=== PATIENT | male | born 1960 | race Caucasian/White ===

== ENCOUNTER → 2017-02-25 | Outpatient (CLI) | payer MEDICARE ==
[~2017-02-25] MED LIST: AMLO10 PO; AMOX500 PO; ANTIDIARRHEAL; B12 PO; CITA20 PO; CLON.1 PO; CYAN500 PO; Cerovite Advan1 EACH PO; FOLI1 PO; FURO20 PO; Iron Supplemen325 MG PO; LISI20 PO; LISI5 PO; Lisinopril2.5 MG; MAGNESIUM GLUCONATE PO; METO25ER PO; METO50 PO; MULVITMIND PO; Magnesium500 M1 PO; NYST100P TOP; PANCREAZE PO; POTA10T PO; SODCHL1 PO; THIA100 PO; TRAZ50 PO; VITAMIN B-1250 MG PO; [UNRECOGNIZED DRUG - OTHER] TOP
[2017-02-25 15:28] LABS: Influenza A Negative (NEGATIVE); Influenza B Negative (NEGATIVE)
== END | disposition home or self-care (01) ==
LOC: LAB 14:45
DX: R09.89 Other specified symptoms and signs involving the circulatory and respiratory systems (principal); R50.9 Fever, unspecified; R05 Cough
CPT/HCPCS: 87804

== ENCOUNTER 2018-04-07 07:36 | Inpatient (IN) | payer MEDICARE ==
[~2018-04-07] VITALS: Ht 185.4 cm; Wt 56.3 kg
[~2018-04-07 07:36] MED LIST changes: -AMLO10 PO; +AMLO5 PO; -CITA20 PO; +Citalopram HBr10 MG PO
[2018-04-07 08:07] LABS: BASOPHILS ABSOLUTE AUTO 0.07 K/mm3 (0.00-0.23); BASOPHILS PERCENT AUTO 0 % (0-2); EOSINOPHILS ABSOLUTE AUTO 0.01 K/mm3 (0.00-0.68); EOSINOPHILS PERCENT AUTO 0 % (0-6); Hematocrit 36.5 % (37.0-53.0); Hemoglobin 13.3 g/dL (13.5-17.5); IMMATURE GRAN ABSOLUTE AUTO 0.14 K/mm3 (0.00-0.10); IMMATURE GRAN PERCENT AUTO 1 % (0-1); LYMPHOCYTES PERCENT AUTO 5 % (21-46); MONOCYTES ABSOLUTE AUTO 1.28 K/mm3 (0.16-1.47); MONOCYTES PERCENT AUTO 6 % (4-13); Mean Corpuscular HGB 32.1 pg (26.0-34.0); Mean Corpuscular HGB Conc 36.4 g/dL (31.5-36.5); Mean Corpuscular Volume 88 fL (80-100); Mean Platelet Volume 8.4 fL (9.1-12.4); NEUTROPHILS ABSOLUTE AUTO 18.27 K/mm3 (1.96-9.15); NEUTROPHILS PERCENT AUTO 88 % (41-73); Platelet Count 317 K/mm3 (150-400); RDW Coefficient Variation 12.3 % (11.7-14.2); RDW Standard Deviation 40.1 fL (35.1-46.3); Red Blood Cell Count 4.14 M/mm3 (4.30-5.90); White Blood Cell Count 20.77 K/mm3 (4.00-11.30)
[2018-04-07 08:24] LABS: Ethanol (Alcohol), Blood, Med <3 mg/dL
[2018-04-07 08:31] LABS: Alanine Aminotransfer (ALT/SGP 50 U/L (12-78); Albumin, Blood 3.8 g/dL (3.4-5.0); Albumin/Globulin Ratio 0.7 (0.8-1.8); Alk Phos 124 U/L (50-136); Anion Gap 15 mmol/L (6-16); Aspartate Aminotrans (AST/SGOT 76 U/L (12-37); Bilirubin, Total 1.1 mg/dL (0.1-1.0); Blood Urea Nitrogen 6 mg/dL (8-24); Bun/Creatinine Ratio 6.9 (12.0-20.0); CO2, Blood 27 mmol/L (21-32); Calcium, Blood 8.8 mg/dL (8.5-10.1); Chloride, Blood 70 mmol/L (98-108); Creatinine, Blood 0.87 mg/dL (0.60-1.20); Globulin, Blood 5.2 g/dL (2.2-4.0); Glomerular Filtration Rate >60 (60-); Glucose, Blood 110 mg/dL (70-99); Potassium, Blood 4.6 mmol/L (3.5-5.5); Sodium, Blood 112 mmol/L (136-145)
[2018-04-07] MEDS ORDERED: ZENPEP DR 20,01 EACH PO (10:11)
[2018-04-07] MEDS ORDERED: METO25 PO (10:12)
[2018-04-07] MEDS ORDERED: FURO20 PO (10:14)
[2018-04-07 10:45] LABS: Source, Urine Voided
[2018-04-07 10:59] LABS: Bilirubin, Urine Neg (Neg); Blood, Urine 2+ (Neg); Glucose Qualitative, Urine Neg (Neg); Ketones, Urine 1+ (Neg); Leukocyte Esterase, Urine Neg (Neg); Nitrite, Urine Neg (Neg); Protein, Urine 1+ (Neg); Urobilinogen, Urine NORM (Normal)
[2018-04-07 11:08] LABS: Appearance, Urine Clear (Clear); Color, Urine Yellow (P-Yellow)
[2018-04-07 11:13] LABS: Red Blood Cells, Urine 0-2 /hpf (0-2); White Blood Cells, Urine Not Seen /hpf (0-5)
[2018-04-07 11:14] LABS: Bacteria Not Seen /hpf; Squamous Epithelial Cells Rare /hpf (Few)
[2018-04-07 12:07] LABS: Creatine Kinase MB 11.9 ng/mL (0.0-3.6); Creatine Kinase MB Index 2.3 (0.0-4.0)
[2018-04-07 15:13] LABS: Anion Gap 11 mmol/L (6-16); Blood Urea Nitrogen 5 mg/dL (8-24); Bun/Creatinine Ratio 7.1 (12.0-20.0); CO2, Blood 29 mmol/L (21-32); Calcium, Blood 8.1 mg/dL (8.5-10.1); Chloride, Blood 76 mmol/L (98-108); Creatinine, Blood 0.71 mg/dL (0.60-1.20); Glomerular Filtration Rate >60 (60-); Glucose, Blood 83 mg/dL (70-99); Potassium, Blood 3.8 mmol/L (3.5-5.5); Sodium, Blood 116 mmol/L (136-145)
[2018-04-07] MEDS ORDERED: TRAZ50 PO (16:11)
[2018-04-07] MEDS ORDERED: FOLI1 PO (16:12)
[2018-04-07] MEDS ORDERED: CYAN500 PO (16:13)
[2018-04-07] MEDS ORDERED: Cerovite Advan1 EACH PO (16:15)
[2018-04-07] MEDS ORDERED: D3-20002000 UNIT PO (16:15)
--- NOTE | 2018-04-07 17:50 | NUR ---
ASSUMED CARE OF PT AT APPROXIMATELY 1240. PT ALERT AND ORIENTED ANSWERING QUESTIONS APPROPRIATELY. VS STABLE. SODIUM HAS INCREASED FROM 112 TO 116. LS EXP WHEEZES THROUGHOUT. O2 SATS >92% ON RA. PT DENIES ANY PAIN AT THIS TIME. PT STATES HE DRINKS 2-3 BEERS DAILY, BUT SHOWS NO SIGNS OR SYMPTOMS OF WITHDRAWAL AT THIS TIME. NO CHANGES SINCE INITIAL ASSESSMENT. WILL CONTINUE TO MONITOR AND REPORT TO ONCOMING RN. CALL LIGHT IN REACH.
--- NOTE | 2018-04-08 03:04 | NUR ---
ASSUMED CARE OF PATIENT AT APPROXIMATELY 1905 FROM CONCHIS Simmons RN. PATIENT ALERT AND ORIENTED X2. PATIENT HAS NOT AMBULATED SINCE SHIFT CHANGE. PATIENT DENIES PAIN, NUMBNESS, TINGLING, DIZZINESS AND NAUSEA. PATIENT WAS EATING DINNER AT SHIFT CHANGE AND REPORTED HE IS NOT ABLE TO EAT FOOD FAST ENOUGH; FOOD COLD. SR/ST ON TELE; OXYGEN SATURATION ABOVE 90% ON ROOM AIR. PATIENT WEARING ATTENDS AND STATES HE WILL CALL IF THEY NEED TO BE CHANGED; PATIENT INCONTINENT OF STOOL AND DID NOT CALL STAFF; USES URINAL BEDSIDE. NO S/S OF ETOH W/D NOTED. NS INFUSING PER ORDER. PATIENT CURRENTLY SLEEPING IN BED; CALL LIGHT IN REACH; BED IN LOWEST POSISTION; BED ALARM ON; WILL CONTINUE TO MONITOR AND ASSESS UNTIL END OF SHIFT.
[2018-04-08 03:53] LABS: BASOPHILS ABSOLUTE AUTO 0.03 K/mm3 (0.00-0.23); BASOPHILS PERCENT AUTO 0 % (0-2); EOSINOPHILS ABSOLUTE AUTO 0.03 K/mm3 (0.00-0.68); EOSINOPHILS PERCENT AUTO 0 % (0-6); Hematocrit 32.2 % (37.0-53.0); Hemoglobin 11.4 g/dL (13.5-17.5); IMMATURE GRAN ABSOLUTE AUTO 0.06 K/mm3 (0.00-0.10); IMMATURE GRAN PERCENT AUTO 1 % (0-1); LYMPHOCYTES ABSOLUTE AUTO 1.63 K/mm3 (0.84-5.20); LYMPHOCYTES PERCENT AUTO 12 % (21-46); MONOCYTES ABSOLUTE AUTO 1.02 K/mm3 (0.16-1.47); MONOCYTES PERCENT AUTO 8 % (4-13); Mean Corpuscular HGB 31.9 pg (26.0-34.0); Mean Corpuscular HGB Conc 35.4 g/dL (31.5-36.5); Mean Corpuscular Volume 90 fL (80-100); Mean Platelet Volume 8.6 fL (9.1-12.4); NEUTROPHILS ABSOLUTE AUTO 10.47 K/mm3 (1.96-9.15); NEUTROPHILS PERCENT AUTO 79 % (41-73); Platelet Count 271 K/mm3 (150-400); RDW Coefficient Variation 12.5 % (11.7-14.2); RDW Standard Deviation 41.7 fL (35.1-46.3); Red Blood Cell Count 3.57 M/mm3 (4.30-5.90); White Blood Cell Count 13.24 K/mm3 (4.00-11.30)
[2018-04-08 04:16] LABS: Magnesium, Blood 2.2 mg/dL (1.6-2.4)
[2018-04-08 04:30] LABS: Alanine Aminotransfer (ALT/SGP 37 U/L (12-78); Albumin, Blood 2.8 g/dL (3.4-5.0); Albumin/Globulin Ratio 0.7 (0.8-1.8); Alk Phos 93 U/L (50-136); Anion Gap 8 mmol/L (6-16); Aspartate Aminotrans (AST/SGOT 71 U/L (12-37); Bilirubin, Total 0.8 mg/dL (0.1-1.0); Blood Urea Nitrogen 5 mg/dL (8-24); Bun/Creatinine Ratio 9.2 (12.0-20.0); CO2, Blood 26 mmol/L (21-32); Calcium, Blood 7.4 mg/dL (8.5-10.1); Chloride, Blood 87 mmol/L (98-108); Creatinine, Blood 0.54 mg/dL (0.60-1.20); Glomerular Filtration Rate >60 (60-); Glucose, Blood 89 mg/dL (70-99); Potassium, Blood 3.3 mmol/L (3.5-5.5); Sodium, Blood 121 mmol/L (136-145); Total Protein, Blood 6.8 g/dL (6.4-8.2)
--- NOTE | 2018-04-08 06:02 | NUR ---
NO ACUTE CHANGES TO REPORT. VSS. PATIENT SLEPT ABOUT NINE HOURS LAST NIGHT. WILL CONTINUE TO MONITOR AND ASSESS UNTIL END OF SHIFT.
--- NOTE | 2018-04-08 07:43 | NUR ---
Dr. Gonsalez here, rounding on the pt.
--- NOTE | 2018-04-08 13:16 | NUR ---
The pt is cooperative, somewhat irritable this morning, but this seemed like it could be due to his loss of short term memory and hence some frustration that he did not understand or remember what was going on here in the hospital. Oriented to person, place, family, following directions.
--- NOTE | 2018-04-08 17:13 | NUR ---
SHIFT SUMMARY PT AXO, PLEASANT AND COOPERATIVE WITH CARE THOUGH VERY FORGETFUL AND NEEDS REMINDERS. PT ARRIVED TO ROOM AT 1334 VIA WHEELCHAIR AND RN ESCORT. PT DENIES PAIN. IV PATENT AND INFUSING. BED ALARM ON, CALL LIGHT WITHIN REACH. DENIES SOB AND NV. BED IN LOW POSITION.
--- NOTE | 2018-04-09 04:22 | NUR ---
SHIFT SUMMARY PATIENT HAD NO ACUTE CHANGES OBSERVED DURING THE SHIFT. AXO 3 AND FORGETFUL AT TIMES. ONE ASSIST W/FWW TO BSC. TAKES MEDS WHOLE W/WATER. WILL USE CALL LIGHT FOR ATTENDS CHANGE. URINAL AT BEDSIDE. PIV REMAINS INTACT. NS INFUSING AT 125mL/HR. SODIUM CHLORIDE GIVEN PER SCHEDULE EMAR. DENIES PAIN, SOB, AND N/V. VSS/AFEBRILE. PATIENT REPORTS WANTING TO TAKE TRAZADONE 50 MG BUT NOT IN EMAR BUT ON MED RX. PATIENT REPORTS HE TOOK IT IN PCU THE LAST FEW NIGHTS. WILL NOTIFY DAY RN. CALL LIGHT IN REACH. BED IN LOWEST POSITION. WILL CONTINUE TO MONITOR UNTIL DAY SHIFT NURSE ASSUMES CARE.
[2018-04-09 05:05] LABS: BASOPHILS ABSOLUTE AUTO 0.08 K/mm3 (0.00-0.23); BASOPHILS PERCENT AUTO 1 % (0-2); EOSINOPHILS ABSOLUTE AUTO 0.26 K/mm3 (0.00-0.68); EOSINOPHILS PERCENT AUTO 3 % (0-6); Hematocrit 31.3 % (37.0-53.0); IMMATURE GRAN ABSOLUTE AUTO 0.03 K/mm3 (0.00-0.10); IMMATURE GRAN PERCENT AUTO 0 % (0-1); LYMPHOCYTES ABSOLUTE AUTO 2.45 K/mm3 (0.84-5.20); LYMPHOCYTES PERCENT AUTO 24 % (21-46); MONOCYTES ABSOLUTE AUTO 0.98 K/mm3 (0.16-1.47); MONOCYTES PERCENT AUTO 10 % (4-13); Mean Corpuscular HGB 32.1 pg (26.0-34.0); Mean Corpuscular HGB Conc 35.1 g/dL (31.5-36.5); Mean Corpuscular Volume 91 fL (80-100); Mean Platelet Volume 8.8 fL (9.1-12.4); NEUTROPHILS ABSOLUTE AUTO 6.48 K/mm3 (1.96-9.15); NEUTROPHILS PERCENT AUTO 63 % (41-73); Platelet Count 251 K/mm3 (150-400); RDW Coefficient Variation 12.5 % (11.7-14.2); Red Blood Cell Count 3.43 M/mm3 (4.30-5.90); White Blood Cell Count 10.28 K/mm3 (4.00-11.30)
[2018-04-09 05:55] LABS: Anion Gap 9 mmol/L (6-16); Blood Urea Nitrogen 4 mg/dL (8-24); Bun/Creatinine Ratio 8.3 (12.0-20.0); CO2, Blood 26 mmol/L (21-32); Calcium, Blood 7.6 mg/dL (8.5-10.1); Chloride, Blood 87 mmol/L (98-108); Creatinine, Blood 0.48 mg/dL (0.60-1.20); Glomerular Filtration Rate >60 (60-); Glucose, Blood 98 mg/dL (70-99); Potassium, Blood 3.3 mmol/L (3.5-5.5); Sodium, Blood 122 mmol/L (136-145)
--- NOTE | 2018-04-09 16:51 | NUR ---
SHIFT SUMMARY ADMITTED FOR HYPONATREMIA, PT'S SODIUM WAS 112 ON ADMIT, NOW UP TO 122. DR WOULD LIKE PT'S SODIUM TO BE UP TO 125 AT MINIMUM FOR DC. PT IS A&O X4 BUT FORGETFUL, HE TAKES MEDS WHOLE. PT IS INDEPENDENT IN THE ROOM AND VALERIO, STATES HE FEELS BETTER TODAY. (LISTED 1 PERSON ASSIST FWW TO BSC). HE LIVES ALONE. HE IS NOT ON O2. IV FLUIDS WERE DC'D TODAY. IS SUPPLEMENTING SODIUM WITH 2 G SODIUM 3 X'S A DAY.
--- NOTE | 2018-04-09 23:49 | NUR ---
PATIENT REPORTS HE TAKES DESYREL 50 MG BEDTIME. MEDICATION IS IN PATIENT MED RX. HOSPITALIST DR OSEGUERA ORDERED DESYREL 50 MG BEDTIME PRN.
--- NOTE | 2018-04-10 04:01 | NUR ---
SHIFT SUMMARY PATIENT HAD NO ACUTE CHANGES OBSERVED DURING THE SHIFT. AXO X3 W/SHORT TERM MEMORY DEFICIT. PATIENT REPORTS FEELING BETTER AND IS INDEPENDENT IN THE ROOM. USES CALL LIGHT APPROPRIATELY. USES URINAL AT BS. DENIES PAIN, SOB, AND N/V. PATIENT REPORTS HE TAKES TRAZADONE 50 MG PO FOR INSOMNIA. HOSPITALIST DR OSEGUERA ORDERED PRN AT BEDTIME. PATIENT ABLE TO SLEEP. CALL LIGHT IN REACH. BED IN LOWEST POSITION. WILL CONTINUE TO MONITOR UNTIL DAY SHIFT NURSE ASSUMES CARE.
[2018-04-10 06:04] LABS: Anion Gap 9 mmol/L (6-16); Blood Urea Nitrogen 7 mg/dL (8-24); Bun/Creatinine Ratio 12.1 (12.0-20.0); CO2, Blood 27 mmol/L (21-32); Calcium, Blood 8.1 mg/dL (8.5-10.1); Chloride, Blood 83 mmol/L (98-108); Creatinine, Blood 0.58 mg/dL (0.60-1.20); Glomerular Filtration Rate >60 (60-); Glucose, Blood 97 mg/dL (70-99); Potassium, Blood 3.9 mmol/L (3.5-5.5); Sodium, Blood 119 mmol/L (136-145)
--- NOTE | 2018-04-10 06:31 | NUR ---
cL SODIUM 119. HOSPITALIST, DR OSEGUERA NOTIFIED. NO ORDERS. WILL CONTINUE TO MONITOR.
[2018-04-10 12:08] LABS: Source, Urine Clean Catch
[2018-04-10 12:11] LABS: Appearance, Urine Clear (Clear); Bilirubin, Urine Neg (Neg); Blood, Urine Neg (Neg); Color, Urine Yellow (P-Yellow); Glucose Qualitative, Urine Neg (Neg); Ketones, Urine Neg (Neg); Leukocyte Esterase, Urine Neg (Neg); Nitrite, Urine Neg (Neg); Protein, Urine Neg (Neg); Urobilinogen, Urine NORM (Normal)
--- NOTE | 2018-04-10 16:48 | NUR ---
SHIFT SUMMARY PT DEPRESSED TODAY AND UPSET WHEN HE FOUND OUT HE WOULD NOT BE RELEASED FOR DC TODAY. HIS SODIUM LEVELS ARE FURTHER DOWN FROM 122 YESTERDAY TO [address] SUSPECTS WATER OVERINDULGENCE. DR ORDERED FLUID RESTRICTION 1200 ML/DAY & URINALYSIS (SPECIFIC GRAVITY CHECK) AND IV FLUID NORMAL SALINE 100/ML HOUR. PREVIOUS IV WAS NO LONGER PATENT, A NEW IV WAS BEGAN NEAR TO THE ORIGINAL AREA 18 RT FOREARM. PT IS ON ROOM AIR, PT IS A&O X4 AND FORGETFUL.
--- NOTE | 2018-04-10 22:30 | NUR ---
PATIENT ASKED FOR HIS DESYREL 50 MG PO FOR INSOMNIA. GIVEN PER EMAR. NS INFUSING AT 100 mL/HE. DENIES PAIN, SOB, AND N/V. CALL LIGHT IN REACH. WILL CONTINUE TO MONITOR.
--- NOTE | 2018-04-11 03:16 | NUR ---
SHIFT SUMMARY PATIENT HAD NO ACUTE CHANGES OBSERVED DURING THE SHIFT, AXO X3 AND INDEPENDENT IN THE ROOM. DENIES PAIN, SOB, AND N/V. PIV REMAINS INTACT. NS INFUSING AT 100 mL/HR. PATIENT REQUEST DESYREL 50 MG FOR INSOMNIA AND GIVEN PER EMAR. USES URINAL AT BEDSIDE. VSS/AFEBRILE. FLUID RESTRICTION 1,200 mL. CALL LIGHT IN REACH. BED IN LOWEST POSITION. WILL CONTINUE TO MONITOR UNTIL DAY SHIFT NURSE ASSUMES CARE.
[2018-04-11 05:33] LABS: Anion Gap 8 mmol/L (6-16); Blood Urea Nitrogen 8 mg/dL (8-24); CO2, Blood 25 mmol/L (21-32); Calcium, Blood 8.5 mg/dL (8.5-10.1); Chloride, Blood 91 mmol/L (98-108); Glomerular Filtration Rate >60 (60-); Glucose, Blood 119 mg/dL (70-99); Potassium, Blood 4.1 mmol/L (3.5-5.5); Sodium, Blood 124 mmol/L (136-145)
--- NOTE | 2018-04-11 17:35 | NUR ---
PATIENT A/OX3, FORGETFUL AT TIMES. UP INDEPENDENTLY IN ROOM. DENIES ANY PAIN OR DISCOMFORT. PATIENT DID NOT HAVE A RIDE HOME TODAY DUE TO WEATHER CONDITIONS. PATIENT HOPES TO D/C TOMORROW. FLUID RESTRICTION OF 1200CC DAILY. 18G IV TO R FA WNL, NS@ 100ML/HR INFUSING.
--- NOTE | 2018-04-12 05:00 | NUR ---
ALLIGATOR SHEAR OPERATOR SUMMARY NO ACUTE CHANGES THIS SHIFT. PT AAOX4 AND INDEPENDENT IN ROOM. DENIES PAIN, N/V, SOB. REMAINS ON NS AT 100 ML/HR AND HAS REMAINED WITHIN 1200 ML FLUID LIMIT. PT HOPEFUL DC LATER TODAY IF WEATHER PERMITS HIS PARENTS TO BE ABLE TO PICK HIM UP. VSS, WILL CONTINUE TO MONITOR.
[2018-04-12 05:37] LABS: Anion Gap 7 mmol/L (6-16); Blood Urea Nitrogen 6 mg/dL (8-24); Bun/Creatinine Ratio 10.7 (12.0-20.0); CO2, Blood 28 mmol/L (21-32); Calcium, Blood 8.2 mg/dL (8.5-10.1); Chloride, Blood 93 mmol/L (98-108); Creatinine, Blood 0.56 mg/dL (0.60-1.20); Glomerular Filtration Rate >60 (60-); Glucose, Blood 129 mg/dL (70-99); Potassium, Blood 4.3 mmol/L (3.5-5.5); Sodium, Blood 128 mmol/L (136-145)
[2018-04-12] MEDS ORDERED: SODCHL1 (12:48)
[2018-04-12] MEDS ORDERED: POTCHL20ER PO (12:55)
--- NOTE | 2018-04-12 18:06 | NUR ---
DISCHARGE NOTE DON LEFT WITH DAD. PIV REMOVED, PAPERWORK GONE OVER, MEDS FAXED TO PHARMACY. DENIED PAIN, INDEPENDENT IN ROOM. EAGER TO GO HOME
== END 2018-04-12 18:05 | disposition home or self-care (01) | DRG 641 ==
LOC: ER 07:36 → ERHOLD 10:30 → MEDS 12:27 → PCU 12:30 → MEDS 04-08 13:25 → ENPENDDIS 04-12 12:12 → MEDS 04-12 18:05
PROVIDERS: Emergency Medicine; Hospitalist; Internal Medicine; ADMIT Internal Medicine
DX: E87.1 Hypo-osmolality and hyponatremia (principal); G93.40 Encephalopathy, unspecified; F10.27 Alcohol dependence with alcohol-induced persisting dementia; F10.20 Alcohol dependence, uncomplicated; G40.909 Epilepsy, unspecified, not intractable, without status epilepticus; I10 Essential (primary) hypertension; K70.30 Alcoholic cirrhosis of liver without ascites; F17.210 Nicotine dependence, cigarettes, uncomplicated; Z86.73 Personal history of transient ischemic attack (TIA), and cerebral infarction without residual deficits; T68.XXXA Hypothermia, initial encounter
CPT/HCPCS: 36415; 71046; 80048; 80053; 81001; 81003; 82550; 82553; 83605; 83735; 85025; 87040; 93005; 93010; 96360; 96361; 99285-25; G0480; J7030